=== PATIENT | female | born 1950 | race Caucasian/White ===

== ENCOUNTER 2018-08-01 10:34 | Emergency (ER) | payer OTHER ==
[~2018-08-01] VITALS: Ht 162.6 cm; Wt 90.7 kg
--- NOTE | ~2018-08-01 | EKG ---
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
[2018-08-01 11:04] LABS: ABSOLUTE NEUTROPHILS 4.7 thou/uL (1.4-8.2); BASOPHILS 0.9 % (0.0-2.0); HEMATOCRIT 40.9 % (37.0-47.0); HEMOGLOBIN 13.7 gm/dL (12.0-15.0); LYMPHOCYTES 27.2 % (24.0-44.0); MCH 30.2 pg (26.0-34.0); MCHC 33.5 g/dL (28.0-37.0); MCV 90.2 fL (80.0-100.0); MONOCYTES 6.5 % (1.0-8.0); PLATELET COUNT 295 thou/uL (150-400); POLYS 64.4 % (36.0-66.0); RBC 4.54 mil/uL (4.20-5.00); RDW 13.7 % (10.5-14.5); WBC 7.2 thou/uL (4.0-11.0)
[2018-08-01 11:12] LABS: ANION GAP 5 mmol/L (7-16); BUN 24 mg/dL (7-18); CALCIUM 9.4 mg/dL (8.5-10.1); CHLORIDE 106 mmol/L (98-107); CO2 26 mmol/L (21-32); CREATININE 0.7 mg/dL (0.6-1.0); GLUCOSE 113 mg/dL (74-106); POTASSIUM 4.1 mmol/L (3.5-5.1); SODIUM 137 mmol/L (136-145)
[2018-08-01 11:21] LABS: ALBUMIN 3.4 g/dL (3.4-5.0); SGOT 21 U/L (15-37); SGPT 25 U/L (30-65); TOTAL BILIRUBIN 0.4 mg/dL (<0.1-1.0); TOTAL PROTEIN 6.9 g/dL (6.4-8.2); TROPONIN-I <0.06 ng/mL (<0.06)
[2018-08-01] MEDS ORDERED: ELIQUIS5 MG PO (11:49)
[2018-08-01 13:39] VITALS: BP 120/61
== END 2018-08-01 13:39 | disposition home or self-care (01) ==
LOC: ER 10:34
PROVIDERS: Physician Assistant
DX: R07.89 Other chest pain (principal); Z86.711 Personal history of pulmonary embolism